=== PATIENT | male | born 1990 | race Caucasian/White ===

== ENCOUNTER 2024-11-01 23:27 | Emergency (ER) | payer MEDICAID ==
[~2024-11-01] VITALS: Ht 180.3 cm; Wt 89.5 kg
[2024-11-01 23:32] VITALS: BP 141/95; PULSE 75; RESP 18; TEMP 98.1; O2SAT 100
--- NOTE | 2024-11-02 00:36 | Physician Documentation ---
HPI ~ General Chief Complaint: Tooth Problem Stated Complaint: DENTAL PAIN Time Seen by MD: 00:36 Medication Reconciliation Allergies: Coded Allergies: No Known Allergies (Unverified , 11/01/24) Physical Exam Vital Signs: Temperature: 98.1, Source: Temporal, Heart Rate: 75, Respiratory Rate: 18, BP: 141/95, Pulse Oximetry: 100, Weight: 89.500 Oxygen Flow Rate: 0 Progress Results/Orders Results/Orders Vital Signs 11/01/24 23:32 Temp 98.1 Pulse 75 Resp 18 B/P (MAP) 141/95 Pulse Ox 100 O2 Flow Rate 0 Departure Referrals: NO PRIMARY CARE PROVIDER (PCP) WIA CHAMPION MD Nov 02, 2024 00:36
[2024-11-02] MEDS ORDERED: IBUP-1986 PO (13:39)
[2024-11-02] MEDS ORDERED: AMOX500C2 PO (13:39)
== END 2024-11-02 01:01 | disposition left against medical advice (07) ==
LOC: ER 23:29
DX: K08.89 Other specified disorders of teeth and supporting structures (principal); Z53.21 Procedure and treatment not carried out due to patient leaving prior to being seen by health care provider

== ENCOUNTER 2024-11-02 11:53 | Emergency (ER) | payer MEDICAID ==
[~2024-11-02] VITALS: Ht 180.3 cm; Wt 75.3 kg
[2024-11-02 12:06] VITALS: BP 147/96; PULSE 63; O2SAT 100
--- NOTE | 2024-11-02 13:38 | Physician Documentation ---
HPI ~ General Chief Complaint: Tooth Problem Stated Complaint: TOOTH PAIN Time Seen by MD: 13:07 Primary Medical Doctor: roque hui History of Present Illness HPI Comment This is a 34-year-old male who presents with progressively worsening right lower rear molar pain, patient reports pain has been present for several months. Reports appointment with dentist for removal tooth in six days. Patient reports no fevers. Patient reports no difficulty breathing or swallowing. Patient reports no other acute symptoms or concerns. Medication Reconciliation Allergies: Coded Allergies: No Known Allergies (Unverified , 11/02/24) Scheduled Amoxicillin Trihydrate* (Amoxicillin*), 1 CAP PO Q8H Ibuprofen (Ibuprofen), 1 TAB PO Q8H Review of Systems ROS As stated above in the HPI, otherwise all systems are reviewed and negative. Physical Exam Vital Signs: Temperature: 98.2, Source: Oral, Heart Rate: 63, Respiratory Rate: 15, BP: 147/96, Pulse Oximetry: 100, Weight: 75.300 Oxygen Flow Rate: 0 Physical Exam VITALS: Reviewed and as above. GENERAL: Alert, nontoxic appearing, no apparent distress. HEENT: Right rear lower molar broken and severely decayed, no gingival erythema or swelling, no fluctuance, no facial swelling, no submandibular swelling, no elevation of the tongue, no drooling RESPIRATORY: No increased work of breathing, no respiratory distress, speaking in full clear sentences Progress Results/Orders Results/Orders Completed Orders - VEENA TAI ELECTROTYPER Ketorolac Trometh 15mg/Ml Vial (Toradol (11/02/24 13:35) Vital Signs 11/02/24 11/02/24 11/02/24 12:06 13:49 13:53 Temp 98.2 98.2 Pulse 63 Resp 15 16 B/P (MAP) 147/96 Pulse Ox 100 O2 Flow Rate 0 Medical Decision Making Findings This well appearing 34-year-old male presented with dental pain to the right rear lower molar. Based on history and physical exam I have low clinical suspicion for peritonsillar abscess, uvulitis, deep tissue space infection of the head/neck, or impending airway compromise. There was no submandibular swelling or elevation of the tongue, the uvula was midline, patient is able to swallow fluids and secretion without difficulty, there is no increased work of breathing or noisy breathing. Based on presentation I am concerned for odontogenic infection and antibiotic treatment with amoxicillin is indicated Pain control with non-narcotic medications is appropriate at this time. Differential Dx:Considerations: Include: Alveolar fracture, Alveolar osteitis, ANUG, Facial Cellulitis, Periapical abscess, Peridontal abscess, Pulpitis, Tooth avulsion, Tooth eruption, Tooth Fracture, Trigeminal neuralgia, Tooth subluxation, Other (Conner's angina) Departure Time of Disposition: 13:37 Disposition: 01 HOME / SELF CARE / HOMELESS Impression: Primary Impression: Toothache Condition: Improved Discharge Instructions: Dental Pain Additional Instructions: Please take the antibiotics as prescribed, use the ibuprofen as prescribed, you may add Tylenol [id number] as directed by [id number] packaging as needed for breakthrough pain. Please take ibuprofen with food to avoid stomach upset. Follow up with your dentist as scheduled. Please follow up with your primary care provider in the next few days. Please return to the emergency department for any new or worsening concerning symptoms including but not limited to increased swelling of your face, difficulty lying or breathing, or if you develop a fever over 100.4 that does not lower with ibuprofen or Tylenol. Do not take ibuprofen, naproxen, or aspirin for the next 12 hours as you received a Toradol injection in the emergency department. Referrals: NO PRIMARY CARE PROVIDER (PCP) Prescriptions Ibuprofen (Ibuprofen) 800 Mg Tablet 1 TAB PO Q8H for pain for 10 Days, #30 TAB 0 Refills Prov: VEENA TAI 11/02/24 Amoxicillin Trihydrate* (Amoxicillin*) 500 Mg Capsule 1 CAP PO Q8H for 5 Days, #15 CAP Prov: VEENA TAI 11/02/24 Education Educated: Patient Educated regarding: diagnosis, treatment, prognosis, need for follow up Signature Scribe Signature: No scribe Attestation: The note accurately reflects work and decisions made by me.CARMEN Acevedo 11/03/24 20:54 VEENA TAI Nov 02, 2024 13:38
[2024-11-02] MEDS ORDERED: AMOX500C2 PO (13:39)
[2024-11-02] MEDS ORDERED: IBUP-1986 PO (13:39)
[2024-11-02 13:49] VITALS: RESP 16
[2024-11-02] MEDS: ketorolac trometh 15mg/ml vial 15 MG/ML ML IM ONE (13:49)
[2024-11-02 13:53] VITALS: TEMP 98.2
== END 2024-11-02 13:54 | disposition home or self-care (01) ==
LOC: ER 11:53
DX: K08.89 Other specified disorders of teeth and supporting structures (principal)
CPT/HCPCS: 96372; 99283; J1885